=== PATIENT | female | born 1965 | race African-American/Black ===

== ENCOUNTER 2017-06-24 19:06 | Emergency (ER) | payer OTHER ==
[~2017-06-24 19:06] MED LIST: ASAC400T PO; AZAT50 PO; ULTR37.57 PO; ZOFR4TAB3 SL
[2017-06-24] MEDS ORDERED: IOHEXOL 350 MG/ML 10 ML VIAL (for RAD DIAG) IVCONTRAST ONE (19:07)
[2017-06-24 19:23] VITALS: BP 144/85; PULSE 76; RESP 14; TEMP 98.5; O2SAT 100
[2017-06-24 21:53] LABS: AUTOMATED NEUTROPHIL # 2.4 TH/MM3 (1.8-7.7); BASOPHIL % 0.5 % (0.0-2.0); EOSINOPHIL # 0.6 TH/MM3 (0-0.4); EOSINOPHIL % 9.8 % (0.0-4.0); HEMATOCRIT 34.3 % (35.0-46.0); HEMOGLOBIN 11.7 GM/DL (11.6-15.3); LYMPH % 43.3 % (9.0-44.0); LYMPHOCYTE # 2.7 TH/MM3 (1.0-4.8); MEAN CELL VOLUME 81.1 FL (80.0-100.0); MEAN CORPUSCULAR HEMOGLOBIN 27.7 PG (27.0-34.0); MEAN CORPUSCULAR HGB CONC 34.2 % (32.0-36.0); MEAN PLATELET VOLUME 8.3 FL (7.0-11.0); MONO % 7.7 % (0.0-8.0); MONOCYTE # 0.5 TH/MM3 (0-0.9); NEUT % 38.7 % (16.0-70.0); PLATELET COUNT 271 TH/MM3 (150-450); RED BLOOD COUNT 4.23 MIL/MM3 (4.00-5.30); RED CELL DISTRIBUTION WIDTH 15.6 % (11.6-17.2); WHITE BLOOD COUNT 6.1 TH/MM3 (4.0-11.0)
[2017-06-24 22:02] LABS: BILIRUBIN, URINE NEG (NEG); BLOOD, URINE MOD (NEG); GLUCOSE,URINE NEG (NEG); KETONE, URINE 10 mg/dL (NEG); MUCUS URINE FEW /lpf (OCC); NITRITE,URINE NEG (NEG); PH, URINE 5.5 (5.0-8.5); SQUAMOUS EPITHELIAL CELL URINE 1 /hpf (0-5); URINE COLOR YELLOW (YELLW/STRAW); URINE LEUKOCYTE ESTERASE LARGE (NEG)
[2017-06-24 22:15] LABS: AST (GOT) 21 U/L (15-37); BICARBONATE 26.1 MEQ/L (21.0-32.0); BLOOD UREA NITROGEN 7 MG/DL (7-18); CALCIUM 9.4 MG/DL (8.5-10.1); CHLORIDE 104 MEQ/L (98-107); CREATININE 0.89 MG/DL (0.50-1.00); GLOMERULAR FILTRATION RATE 81 ML/MIN (>89); GLUCOSE,RANDOM 80 MG/DL (74-106); SODIUM (NA) 141 MEQ/L (136-145)
[2017-06-24 22:16] LABS: ALT (GPT) 13 U/L (10-53)
[2017-06-24 22:18] LABS: ALKALINE PHOSPHATASE 97 U/L (45-117); TOTAL BILIRUBIN ADULT 0.6 MG/DL (0.2-1.0); TOTAL PROTEIN 9.2 GM/DL (6.4-8.2)
--- NOTE | 2017-06-24 23:14 | PD ---
HPI Chief Complaint: Abdominal Pain Time Seen by Provider: 22:58 Travel History International Travel<30 days: No Contact w/Intl Traveler<30days: No Traveled to known affect area: No History of Present Illness HPI This is a 52-year-old female with history of ulcerative colitis who presents for evaluation of abdominal pain. Symptoms started 5 days ago. She describes it as an aching pain in her right upper and lower quadrants, constant, radiates into the back. She reports associated nausea, approximately one episode of emesis on a daily basis as well as 3 episodes daily of loose watery stools. Denies dysuria, hematuria, increased urinary frequency, cough or congestion, fevers or chills. Her primary care physician is Dr. Lerner. No other complaints. PFSH Past Medical History Heart Rhythm Problems: Yes (MITRAL VALVE PROLAPSE) Cardiovascular Problems: Yes (MVP) Gastrointestinal Disorders: Yes (COLITIS) Influenza Vaccination: No ?: Not Past Surgical History Hysterectomy: Yes Social History Alcohol Use: Yes (OCCASIONAL) Tobacco Use: No Substance Use: No Allergies-Medications (Allergen,Severity, Reaction): Coded Allergies: prednisone (Unverified Allergy, Intermediate, 11/20/16) Reported Meds & Prescriptions Reported Meds & Active Scripts Active Bentyl (Dicyclomine HCl) 10 Mg Cap 10 Mg PO TID PRN Loperamide (Loperamide HCl) 2 Mg Cap 2 Mg PO DIRECTED PRN One capsule after each loose stool. Not to exceed 8 capsules per day. Zofran (Ondansetron HCl) 4 Mg Tab 4 Mg PO Q6HR PRN Keflex (Cephalexin) 500 Mg Cap 500 Mg PO Q12H 7 Days Ultracet (Tramadol/Acetaminophen) 1 Tab Tab 1 Tab PO Q4H PRN Zofran ODT (Ondansetron HCl) 4 Mg Tab 4 Mg SL QID PRN FOR NAUSEA/VOMITING Reported Azathioprine 50 Mg Tab 25 Mg PO DAILY 30 Days Asacol (Mesalamine) 400 Mg Tabec 800 Mg PO TID Review of Systems Except as stated in HPI: all other systems reviewed are Neg Physical Exam Narrative GENERAL: Well-developed well-nourished female no acute distress SKIN: Warm and dry. HEAD: Atraumatic. Normocephalic. EYES: Pupils equal and round. No scleral icterus. No injection or drainage. ENT: No nasal bleeding or discharge. Mucous membranes pink and moist. NECK: Trachea midline. No JVD. CARDIOVASCULAR: Regular rate and rhythm. No murmur appreciated. RESPIRATORY: No accessory muscle use. Clear to auscultation. Breath sounds equal bilaterally. GASTROINTESTINAL: Abdomen soft, tender to palpation in the right upper and lower quadrants without guarding. Mild right CVA tenderness. MUSCULOSKELETAL: No obvious deformities. No clubbing. No cyanosis. No edema. NEUROLOGICAL: Awake and alert. No obvious cranial nerve deficits. Motor grossly within normal limits. Normal speech. PSYCHIATRIC: Appropriate mood and affect; insight and judgment normal. Data Data Last Documented VS Vital Signs Date Time Temp Pulse Resp B/P (MAP) Pulse Ox O2 Delivery O2 Flow Rate FiO2 06/24/17 19:23 98.5 76 14 144/85 (104) 100 Orders Orders Complete Blood Count With Diff (06/24/17 19:24) Comprehensive Metabolic Panel (06/24/17 19:24) Lipase (06/24/17 19:24) Urinalysis - C+S If Indicated (06/24/17 19:24) Urine Culture (06/24/17 20:55) Ct Abd/Pel W Iv Contrast(Rout) (06/24/17 23:12) Ondansetron Inj (Zofran Inj) (06/24/17 23:45) Morphine Inj (Morphine Inj) (06/24/17 23:45) Potassium Chloride (Kcl) (06/25/17 00:30) Iohexol 350 Inj (Omnipaque 350 Inj) (06/24/17 19:07) Cephalexin (Keflex) (06/25/17 01:00) Ed Discharge Order (06/25/17 00:56) Us Abdomen Gallbladder (06/25/17 ) Dicyclomine Inj (Bentyl Inj) (06/25/17 01:30) Labs Laboratory Tests Test 06/24/17 20:55 06/24/17 21:04 Urine Color YELLOW Urine Turbidity CLEAR Urine pH 5.5 Urine Specific [place] 1.019 Urine Protein TRACE mg/dL Urine Glucose (UA) NEG mg/dL Urine Ketones 10 mg/dL Urine Occult Blood MOD Urine Nitrite NEG Urine Bilirubin NEG Urine Urobilinogen LESS THAN 2.0 MG/DL Urine Leukocyte Esterase LARGE Urine RBC 12 /hpf Urine WBC 14 /hpf Urine Squamous Epithelial Cells 1 /hpf Urine Mucus FEW /lpf Microscopic Urinalysis Comment CULTURE INDICATED White Blood Count 6.1 TH/MM3 Red Blood Count 4.23 MIL/MM3 Hemoglobin 11.7 GM/DL Hematocrit 34.3 % Mean Corpuscular Volume 81.1 FL Mean Corpuscular Hemoglobin 27.7 PG Mean Corpuscular Hemoglobin Concent 34.2 % Red Cell Distribution Width 15.6 % Platelet Count 271 TH/MM3 Mean Platelet Volume 8.3 FL Neutrophils (%) (Auto) 38.7 % Lymphocytes (%) (Auto) 43.3 % Monocytes (%) (Auto) 7.7 % Eosinophils (%) (Auto) 9.8 % Basophils (%) (Auto) 0.5 % Neutrophils # (Auto) 2.4 TH/MM3 Lymphocytes # (Auto) 2.7 TH/MM3 Monocytes # (Auto) 0.5 TH/MM3 Eosinophils # (Auto) 0.6 TH/MM3 Basophils # (Auto) 0.0 TH/MM3 CBC Comment DIFF FINAL Differential Comment Blood Urea Nitrogen 7 MG/DL Creatinine 0.89 MG/DL Random Glucose 80 MG/DL Total Protein 9.2 GM/DL Albumin 4.0 GM/DL Calcium Level 9.4 MG/DL Alkaline Phosphatase 97 U/L Aspartate Amino Transf (AST/SGOT) 21 U/L Alanine Aminotransferase (ALT/SGPT) 13 U/L Total Bilirubin 0.6 MG/DL Sodium Level 141 MEQ/L Potassium Level 3.1 MEQ/L Chloride Level 104 MEQ/L Carbon Dioxide Level 26.1 MEQ/L Anion Gap 11 MEQ/L Estimat Glomerular Filtration Rate 81 ML/MIN Lipase 100 U/L MDM Medical Decision Making Medical Screen Exam Complete: Yes Emergency Medical Condition: Yes Medical Record Reviewed: Yes Differential Diagnosis Colitis, appendicitis, gastroenteritis, obstruction, cholecystitis, biliary colic, pyelonephritis Narrative Course 52-year-old female with history of ulcerative colitis presents with 5 days of right-sided abdominal pain, occasional nausea, vomiting and diarrhea. On examination she has pain in her right upper and lower quadrants. She has slight CVA tenderness during examination. Plan is for lab work, CT abdomen and pelvis. She was given IV morphine, Zofran. Her lab work has been reviewed. Her potassium is 3.1 otherwise unremarkable. Oral potassium chloride was ordered. Urinalysis does reveal 14 WBCs and 12 RBCs suggestive of a urinary tract infection. Keflex was initiated. CT abdomen and pelvis reveals no acute findings. At this point in time the plan was to discharge the patient however after further speaking with the patient and a gallbladder ultrasound was ordered. Gallbladder ultrasound reveals CONCLUSION: 1. 8mm non-shadowing gallstone. Normal dimension common hepatic duct. It is unclear if this has anything to do with her pain as her pain does not seem to be colicky on the initial examination. Regardless, she will be given a copy of her ultrasound report and the name of a local general surgeon will be supplied some of the patient patient can follow-up on an outpatient basis. Diagnosis Primary Impression: Abdominal pain Additional Impressions: Urinary tract infection Hypokalemia Gallstone Referrals: Stas Persaud MD Additional Instructions: Medication as prescribed. Advance diet as tolerated. Follow-up closely with primary care physician in 2-3 days and return for any acutely new or worsening symptoms such as worsening abdominal pain, intractable vomiting and diarrhea. Follow-up with Dr. Persaud, general surgeon, as needed. Med/Other Pt SpecificInfo: Prescription(s) given Scripts Dicyclomine (Bentyl) 10 Mg Cap 10 MG PO TID Y for ABDOMINAL CRAMPING, #21 CAP 0 Refills Prov: Adalberto Juarez MD 06/25/17 Loperamide (Loperamide) 2 Mg Cap 2 MG PO DIRECTED Y for DIARRHEA, #6 CAP 0 Refills One capsule after each loose stool. Not to exceed 8 capsules per day. Prov: Adalberto Juarez MD 06/25/17 Ondansetron (Zofran) 4 Mg Tab 4 MG PO Q6HR Y for NAUSEA OR VOMITING, #20 TAB 0 Refills Prov: Adalberto Juarez MD 06/25/17 Cephalexin (Keflex) 500 Mg Cap 500 MG PO Q12H for Infection for 7 Days, #14 CAP 0 Refills Prov: Adalberto Juarez MD 06/25/17 Disposition: 01 DISCHARGE HOME Condition: Stable [place] Jun 24, 2017 23:14
[2017-06-24] MEDS ORDERED: MORPHINE SULFATE 4 MG/ML INJ IV PUSH ONE (23:45)
[2017-06-24] MEDS ORDERED: ONDANSETRON HCL 4 MG/2 ML VIAL IV PUSH ONE (23:45)
[2017-06-25] MEDS ORDERED: POTASSIUM CHLORIDE 20 MEQ CONTROLLED RELEASE TAB PO ONE (00:30)
--- NOTE | 2017-06-25 00:43 | RADRPT ---
EXAM DATE/TIME: 06/25/2017 00:30 [facility] COMPARISON: No previous studies available for comparison. INDICATIONS : Right upper quadrant pain past 5 days. IV CONTRAST: 95 cc Omnipaque 350 (iohexol) IV ORAL CONTRAST: No oral contrast ingested. RADIATION DOSE: 4.98 CTDIvol (mGy) MEDICAL HISTORY : Cardiovascular disease. Colitis SURGICAL HISTORY : section. ENCOUNTER: Initial ACUITY: 4 - 6 days PAIN SCALE: 10/10 LOCATION: Right upper quadrant TECHNIQUE: Volumetric scanning of the abdomen and pelvis was performed. Using automated exposure control and ad justment of the mA and/or kV according to patient size, radiation dose was kept as low as reasonably achievable to obtain optimal diagnostic quality images. DICOM format image data is available electro nically for review and comparison. FINDINGS: LOWER LUNGS: The visualized lower lungs are clear. LIVER: Homogeneous density without lesion. There is no dilation of the biliary tree. No calcified gallston es. SPLEEN: Normal size without lesion. PANCREAS: Within normal limits. KIDNEYS: Normal in size and shape. There is no mass, stone or hydronephrosis. 1.9 cm cyst upper pole left ki dney. ADRENAL GLANDS: Within normal limits. VASCULAR: There is no aortic aneurysm. BOWEL/MESENTERY: No dilated loops of small or large bowel. The cecum extends into the midline pelvis in contact with the superior margin of the urinary bladder. No evidence of free fluid. ABDOMINAL WALL: Within normal limits. RETROPERITONEUM: There is no lymphadenopathy. BLADDER: No wall thickening or mass. REPRODUCTIVE: Within normal limits. INGUINAL: There is no lymphadenopathy or hernia. MUSCULOSKELETAL: Within normal limits for patient age. Incidental note of bone island in the anterior left acetabulum . CONCLUSION: 1. Negative CT abdomen/pelvis with contrast. David Sena MD on June 25, 2017 at 0:38 Board Certified Radiologist. This report was verified electronically.
[2017-06-25] MEDS ORDERED: CEPH-460 PO (00:47)
[2017-06-25] MEDS ORDERED: ZOFR4TAB PO (00:47)
[2017-06-25] MEDS ORDERED: LOPE2CAP PO (00:56)
[2017-06-25] MEDS ORDERED: DICY10 PO (00:56)
--- NOTE | 2017-06-25 00:58 | PD ---
Data Data Last Documented VS Vital Signs Date Time Temp Pulse Resp B/P (MAP) Pulse Ox O2 Delivery O2 Flow Rate FiO2 06/24/17 19:23 98.5 76 14 144/85 (104) 100 Orders Orders Complete Blood Count With Diff (06/24/17 19:24) Comprehensive Metabolic Panel (06/24/17 19:24) Lipase (06/24/17 19:24) Urinalysis - C+S If Indicated (06/24/17 19:24) Urine Culture (06/24/17 20:55) Ct Abd/Pel W Iv Contrast(Rout) (06/24/17 23:12) Ondansetron Inj (Zofran Inj) (06/24/17 23:45) Morphine Inj (Morphine Inj) (06/24/17 23:45) Potassium Chloride (Kcl) (06/25/17 00:30) Iohexol 350 Inj (Omnipaque 350 Inj) (06/24/17 19:07) Labs Laboratory Tests Test 06/24/17 20:55 06/24/17 21:04 Urine Color YELLOW Urine Turbidity CLEAR Urine pH 5.5 Urine Specific [place] 1.019 Urine Protein TRACE mg/dL Urine Glucose (UA) NEG mg/dL Urine Ketones 10 mg/dL Urine Occult Blood MOD Urine Nitrite NEG Urine Bilirubin NEG Urine Urobilinogen LESS THAN 2.0 MG/DL Urine Leukocyte Esterase LARGE Urine RBC 12 /hpf Urine WBC 14 /hpf Urine Squamous Epithelial Cells 1 /hpf Urine Mucus FEW /lpf Microscopic Urinalysis Comment CULTURE INDICATED White Blood Count 6.1 TH/MM3 Red Blood Count 4.23 MIL/MM3 Hemoglobin 11.7 GM/DL Hematocrit 34.3 % Mean Corpuscular Volume 81.1 FL Mean Corpuscular Hemoglobin 27.7 PG Mean Corpuscular Hemoglobin Concent 34.2 % Red Cell Distribution Width 15.6 % Platelet Count 271 TH/MM3 Mean Platelet Volume 8.3 FL Neutrophils (%) (Auto) 38.7 % Lymphocytes (%) (Auto) 43.3 % Monocytes (%) (Auto) 7.7 % Eosinophils (%) (Auto) 9.8 % Basophils (%) (Auto) 0.5 % Neutrophils # (Auto) 2.4 TH/MM3 Lymphocytes # (Auto) 2.7 TH/MM3 Monocytes # (Auto) 0.5 TH/MM3 Eosinophils # (Auto) 0.6 TH/MM3 Basophils # (Auto) 0.0 TH/MM3 CBC Comment DIFF FINAL Differential Comment Blood Urea Nitrogen 7 MG/DL Creatinine 0.89 MG/DL Random Glucose 80 MG/DL Total Protein 9.2 GM/DL Albumin 4.0 GM/DL Calcium Level 9.4 MG/DL Alkaline Phosphatase 97 U/L Aspartate Amino Transf (AST/SGOT) 21 U/L Alanine Aminotransferase (ALT/SGPT) 13 U/L Total Bilirubin 0.6 MG/DL Sodium Level 141 MEQ/L Potassium Level 3.1 MEQ/L Chloride Level 104 MEQ/L Carbon Dioxide Level 26.1 MEQ/L Anion Gap 11 MEQ/L Estimat Glomerular Filtration Rate 81 ML/MIN Lipase 100 U/L MDM Supervised Visit with JOYCE: Yes Narrative Course The history, exam, and medical decision-making in the associated mid-level provider note were completed with my assistance. I reviewed and agree with the findings presented. I attest that I had a [id number] encounter with the patient on the same day, and personally performed and documented my assessment and findings in the medical record. *My assessment and Findings: Well-appearing 52-year-old woman, history of ulcerative colitis, on meds, now with right-sided abdominal pain, nausea, diarrhea. Mild right lower quadrant tenderness, little in the right upper, negative Lorenz's. CT scans unremarkable. No evidence of gallbladder disease. Some evidence of UTI. I think pyelonephritis is unlikely to completely explain her symptoms. Possibly related to the UC but unclear. Recommend supportive treatment, outpatient follow-up with Dr. Lerner tomorrow, follow-up with her GI doctor, return for any worsening symptoms. Scripts Dicyclomine (Bentyl) 10 Mg Cap 10 MG PO TID Y for ABDOMINAL CRAMPING, #21 CAP 0 Refills Prov: Adalberto Juarez MD 06/25/17 Loperamide (Loperamide) 2 Mg Cap 2 MG PO DIRECTED Y for DIARRHEA, #6 CAP 0 Refills One capsule after each loose stool. Not to exceed 8 capsules per day. Prov: Adalberto Juarez MD 06/25/17 Ondansetron (Zofran) 4 Mg Tab 4 MG PO Q6HR Y for NAUSEA OR VOMITING, #20 TAB 0 Refills Prov: Adalberto Juarez MD 06/25/17 Cephalexin (Keflex) 500 Mg Cap 500 MG PO Q12H for Infection for 7 Days, #14 CAP 0 Refills Prov: Adalberto Juarez MD 06/25/17 Disposition: 01 DISCHARGE HOME Condition: Stable Adalberto Juarez MD Jun 25, 2017 00:58
[2017-06-25] MEDS ORDERED: CEPHALEXIN MONOHYDRATE 500 MG CAP PO ONE (01:00)
[2017-06-25] MEDS ORDERED: DICYCLOMINE HCL 20 MG/2 ML VIAL IM ONE (01:30)
--- NOTE | 2017-06-25 03:15 | RADRPT ---
EXAM DATE/TIME: 06/25/2017 02:15 [facility] COMPARISON: No previous studies available for comparison. INDICATIONS : RUQ pain. MEDICAL HISTORY : Mitral valve prolapse. Colitis. SURGICAL HISTORY : Right shoulder. ENCOUNTER: Initial ACUITY: 1 day PAIN SCORE: 5/10 LOCATION: Right upper quadrant MEASUREMENTS: LIVER: 14.1 cm length 5 mm RIGHT KIDNEY: 9.1 x 4.4 x 4.2 cm FINDINGS: LIVER: Normal echotexture without focal lesion or ductal dilatation. Hepatopedal flow seen in the portal ve in. COMMON DUCT: No intraluminal mass or stone visualized. GALLBLADDER: Echogenic non-shadowing stone present within the lumen measuring 8 x 3 mm. The gallbladder wall is n ormal thickness. No pericholecystic fluid. PANCREAS: The visualized portions are within normal limits. RIGHT KIDNEY: No evidence of hydronephrosis, stone, or mass. CONCLUSION: 1. 8mm non-shadowing gallstone. Normal dimension common hepatic duct. David Sena MD on June 25, 2017 at 3:11 Board Certified Radiologist. This report was verified electronically.
== END 2017-06-25 04:14 | disposition home or self-care (01) ==
LOC: NED 19:06 → NEPD 06-25 04:14
DX: N39.0 Urinary tract infection, site not specified (principal); E87.6 Hypokalemia; K80.20 Calculus of gallbladder without cholecystitis without obstruction; K51.90 Ulcerative colitis, unspecified, without complications; I34.1 Nonrheumatic mitral (valve) prolapse
CPT/HCPCS: 74177; 76705; 80053; 81001; 83690; 85025; 87086; 96374; 96375; 99285; J2270; J2405; Q9967